=== PATIENT | female | born 1950 | race Caucasian/White ===

== ENCOUNTER 2016-10-09 01:37 | Emergency (ER) | payer MEDICARE, OTHER ==
[~2016-10-09 01:37] MED LIST: ACIPHEX20 MG; CLINORIL150 MG; COLCHICINE0.6 MG; FLEXERIL10 MG; FLEXERIL10 MG PO; LUNESTA2 MG; LYRICA150 MG; LYRICA75 MG; MULTIVITAMIN1 TAB; NORCO 5/325 TAB1 TAB; WELLBUTRIN SR150 MG; WELLBUTRIN XL150 MG
[2016-10-09] MEDS ORDERED: AMITRIPTYLINE H10 M1 PO (02:29)
[2016-10-09] MEDS ORDERED: AZELASTINE137 MCG/01 (02:29)
[2016-10-09] MEDS ORDERED: OMEPRAZOLE40 M2 PO (02:30)
[2016-10-09] MEDS ORDERED: CELEXA20 M2 PO (02:30)
[2016-10-09] MEDS ORDERED: VENTOLIN HFA18 G2 PO (02:30)
[2016-10-09] MEDS ORDERED: TUDORZA PRESS400 MC1 INH (02:31)
[2016-10-09] MEDS ORDERED: NEURONTIN300 M1 PO (02:31)
[2016-10-09] MEDS ORDERED: SYNTHROID50 MC1 PO (02:31)
[2016-10-09] MEDS ORDERED: [UNRECOGNIZED DRUG - OTHER] TOP (02:32)
[2016-10-09] MEDS ORDERED: SYMBICORT 160-1 PUFF INH (02:33)
[2016-10-09] MEDS ORDERED: SINEMET 25-1001 EAC1 PO (02:33)
[2016-10-09] MEDS ORDERED: LASIX40 M1 PO (02:34)
[2016-10-09] MEDS ORDERED: NORCO 5-325 TA1 EACH PO (02:35)
[2016-10-09] MEDS ORDERED: IBUPROFEN400 M1 PO (02:36)
[2016-10-09] MEDS ORDERED: CLARITIN10 M8 PO (02:36)
[2016-10-09] MEDS ORDERED: SLOW-MAG71.5 MG PO (02:37)
[2016-10-09] MEDS ORDERED: ASPIRIN81 M1 PO (02:37)
[2016-10-09] MEDS ORDERED: VITAMIN D31000 UNI3 PO (02:37)
[2016-10-09 03:32] LABS: BASO % 0.6 % (0-2); BASO ABSOLUTE COUNT 0.1 tho/cmm (0.0-0.2); EOS % 2.5 % (0-7); EOSINOPHIL ABSOLUTE COUNT 0.2 tho/cmm (0.0-0.7); HCT-HEMATOCRIT 37.7 % (34.0-49.0); HGB-HEMOGLOBIN 12.1 gm/dl (12.0-15.5); IMMATURE GRANULOCYTES ABSOLUTE 0.03 tho/cmm (0-0.03); IMMATURE GRANULOCYTES PERCENT 0.4 % (0-0.3); LYMPH % 27.2 % (20-45); LYMPH ABSOLUTE COUNT 2.3 tho/cmm (0.8-4.5); MCH (MEAN CORPUSCULAR HGB) 28.8 pg (28.0-32.0); MCHC MEAN CORPUSCULAR HGB CONC 32.1 % (32.0-36.0); MCV (MEAN CELL VOLUME) 89.8 fl (82.0-96.0); MEAN PLATELET VOLUME 9.3 cmc (9.4-12.4); MONO % 9.7 % (0-12); MONOCYTE ABSOLUTE COUNT 0.8 tho/cmm (0.0-1.2); NEUTROPHIL ABSOLUTE COUNT 5.1 tho/cmm (1.6-8.0); NEUTROPHIL-AUTOMATED 5.1 tho/cmm (1.6-8.0); NEUTROPHILS % 59.6 % (40-80); PLATELET COUNT 286 tho/cmm (150-450); RED CELL DISTRIBUTION WIDTH 12.9 % (12.4-16.4); WHITE BLOOD COUNT 8.6 tho/cmm (4.0-10.0)
[2016-10-09 03:50] LABS: ALB/GLOB RATIO 0.8 (0.8-2.0); ALBUMIN 3.5 g/dl (3.5-5.0); ALKALINE PHOSPHATASE 113 U/L (33-138); ALT/SGPT 10 U/L (12-78); BILIRUBIN,TOTAL 0.3 mg/dl (0-1.5); BLOOD UREA NITROGEN 16 mg/dl (6-24); CALCIUM 8.2 mg/dl (8.5-10.5); CARBON DIOXIDE-VENOUS 26 mmol/L (22-32); CHLORIDE 105 mmol/l (96-110); CREATININE 1.05 mg/dl (0.50-1.10); GLUCOSE 132 mg/dL (70-110); LIPASE 148 U/L (73-393); SODIUM 140 mmol/L (135-145); eGFR VALUE FOR BLACK 65 mL/Min
[2016-10-09 03:50] LABS: URINE BILIRUBIN NEGATIVE (NEG); URINE BLOOD MODERATE (NEG); URINE GLUCOSE (UA) NEGATIVE (NEG); URINE KETONE NEGATIVE (NEG); URINE LEUKOCYTE ESTERASE NEGATIVE (NEG); URINE NITRITE NEGATIVE (NEG); URINE PROTEIN MODERATE (NEG)
[2016-10-09 03:52] LABS: URINE APPEARANCE CLEAR; URINE COLOR YELLOW
[2016-10-09 03:54] LABS: TSH-THYROID STIMULATING HORM. 3.11 uIU/ml (0.40-3.80)
[2016-10-09 04:04] LABS: ANION GAP 13 mmol/L (0-20); AST/SGOT 25 U/L (10-40); MAGNESIUM 1.9 mg/dl (1.3-2.6); POTASSIUM 4.1 mmol/L (3.7-5.1)
[2016-10-09 04:07] LABS: URINE EPITHELIAL CELLS RARE /[HPF] (0-10); URINE MUCUS 3+; URINE RBC 0-3 /[HPF] (0-5)
== END 2016-10-09 04:30 ==
LOC: EDMED 01:37
PROVIDERS: Emergency Medicine
DX: M17.0 Bilateral primary osteoarthritis of knee (principal); R10.11 Right upper quadrant pain; R53.83 Other fatigue; J44.9 Chronic obstructive pulmonary disease, unspecified; J45.909 Unspecified asthma, uncomplicated; Z87.442 Personal history of urinary calculi; Z79.82 Long term (current) use of aspirin; Z99.81 Dependence on supplemental oxygen; Z79.899 Other long term (current) drug therapy; Z87.891 Personal history of nicotine dependence
CPT/HCPCS: J7030

== ENCOUNTER 2016-10-21 15:00 | Emergency (ER) | payer MEDICARE, OTHER ==
[~2016-10-21 15:00] MED LIST changes: +AMITRIPTYLINE H10 M1 PO; +ASPIRIN81 M1 PO; +AZELASTINE137 MCG/01; +CELEXA20 M2 PO; +CLARITIN10 M8 PO; +IBUPROFEN400 M1 PO; +LASIX40 M1 PO; +NEURONTIN300 M1 PO; +NORCO 5-325 TA1 EACH PO; +OMEPRAZOLE40 M2 PO; +SINEMET 25-1001 EAC1 PO; +SLOW-MAG71.5 MG PO; +SYMBICORT 160-1 PUFF INH; +SYNTHROID50 MC1 PO; +TUDORZA PRESS400 MC1 INH; +VENTOLIN HFA18 G2 PO; +VITAMIN D31000 UNI3 PO; +[UNRECOGNIZED DRUG - OTHER] TOP
== END 2016-10-21 17:33 ==
LOC: EDMED 15:00
PROC: 2W3CX1Z Immobilization of Right Lower Arm using Splint (ICD-10-PCS; principal; 2016-10-21)
DX: S69.81XA Other specified injuries of right wrist, hand and finger(s), initial encounter (principal); J45.909 Unspecified asthma, uncomplicated; F17.200 Nicotine dependence, unspecified, uncomplicated; W19.XXXA Unspecified fall, initial encounter; Y92.511 Restaurant or cafe as the place of occurrence of the external cause